=== PATIENT | female | born 1965 | race Caucasian/White ===

== ENCOUNTER → 2024-07-22 13:53 | Outpatient (BNVA) | payer BC, SELFPAY | PROVIDERS: PCP Family Medicine; Visit Provider Podiatrist Foot & Ankle Surgery | DX: S99.191A Other physeal fracture of right metatarsal, initial encounter for closed fracture; W10.9XXA Fall (on) (from) unspecified stairs and steps, initial encounter | CPT/HCPCS: 73630 ==

== ENCOUNTER → 2024-08-05 08:56 | Outpatient (BNVA) | payer BC, SELFPAY | PROVIDERS: PCP Family Medicine; Visit Provider Podiatrist Foot & Ankle Surgery | DX: S99.191D Other physeal fracture of right metatarsal, subsequent encounter for fracture with routine healing; R03.0 Elevated blood-pressure reading, without diagnosis of hypertension; W10.9XXD Fall (on) (from) unspecified stairs and steps, subsequent encounter | CPT/HCPCS: 73630 ==

== ENCOUNTER → 2024-08-25 11:06 | Outpatient (BNVA) | payer BC, SELFPAY | PROVIDERS: PCP Family Medicine; Visit Provider Podiatrist Foot & Ankle Surgery | DX: S99.191G Other physeal fracture of right metatarsal, subsequent encounter for fracture with delayed healing; W10.9XXD Fall (on) (from) unspecified stairs and steps, subsequent encounter | CPT/HCPCS: 73630 ==

== ENCOUNTER → 2024-09-15 14:53 | Outpatient (BNVA) | payer BC, SELFPAY | PROVIDERS: PCP Family Medicine; Visit Provider Podiatrist Foot & Ankle Surgery | DX: S99.191G Other physeal fracture of right metatarsal, subsequent encounter for fracture with delayed healing (principal); W10.9XXD Fall (on) (from) unspecified stairs and steps, subsequent encounter | CPT/HCPCS: 73630 ==

== ENCOUNTER → 2024-10-13 14:34 | Outpatient (BNVA) | payer BC, SELFPAY | PROVIDERS: PCP Family Medicine; Visit Provider Podiatrist Foot & Ankle Surgery | DX: S99.191D Other physeal fracture of right metatarsal, subsequent encounter for fracture with routine healing (principal); W10.9XXD Fall (on) (from) unspecified stairs and steps, subsequent encounter | CPT/HCPCS: 73630 ==

== ENCOUNTER → 2024-10-23 15:22 | Outpatient (BNVA) | payer BC, SELFPAY | PROVIDERS: PCP Family Medicine; Visit Provider Nurse Practitioner Women's Health | DX: Z87.42 Personal history of other diseases of the female genital tract (principal) | CPT/HCPCS: 87624 ==

== ENCOUNTER 2024-11-06 13:05 | Outpatient (CLI) | payer BC, SELFPAY ==
--- NOTE | 2024-11-06 13:08 | US_ITS ---
WS: [id number] BILATERAL 3D TOMOSYNTHESIS DIGITAL DIAGNOSTIC MAMMOGRAPHY WITH CAD CLINICAL INFORMATION: Z12.39 - Encounter for other screening for malignant neop... HISTORY: Swelling RIGHT axilla COMPARISON: None available TECHNIQUE: Bilateral CC, MLO, and ML views. FINDINGS: Scattered fibroglandular densities bilaterally. Palpable marker RIGHT axilla. Underlying lymph nodes partially visualized. Ultrasound of this area is pending. Small nodule outer LEFT breast measuring 4 mm. This is in the lower outer quadrant LEFT breast. Recommend further evaluation with LEFT breast diagnostic mammography and ultrasound if persistent. This could represent a tiny lymph node but indeterminate. ULTRASOUND BREAST RIGHT TECHNIQUE: Ultrasound right breast focused area of concern. CLINICAL INFORMATION: Z12.39 - Encounter for other screening for malignant neop... FINDINGS: Ultrasound RIGHT axilla in the area of palpable concern. Numerous prominent and enlarged lymph nodes are visualized the largest measures approximately 3.0 x 1.8 x 1.9 cm with persistent fatty hilum. These may be reactive but technically indeterminate. Largest lymph node could be further evaluated with ultrasound-guided biopsy or short interval ultrasound follow-up if preferred. US/US breast RT limited* [id number] IMPRESSION: RIGHT BREAST: DENSITY: There are scattered areas of fibroglandular density. BI-RADS: 4 - Suspicious Finding - Biopsy Should Be Considered. FOLLOW UP: See Report LEFT BREAST: Recommend LEFT breast diagnostic mammography and ultrasound of the 4 mm nodule described above BI-RADS 0 Additional imaging LEFT breast
--- NOTE | 2024-11-06 13:30 | MM_ITS ---
WS: [id number] BILATERAL 3D TOMOSYNTHESIS DIGITAL DIAGNOSTIC MAMMOGRAPHY WITH CAD CLINICAL INFORMATION: Z12.39 - Encounter for other screening for malignant neop... HISTORY: Swelling RIGHT axilla COMPARISON: None available TECHNIQUE: Bilateral CC, MLO, and ML views. FINDINGS: Scattered fibroglandular densities bilaterally. Palpable marker RIGHT axilla. Underlying lymph nodes partially visualized. Ultrasound of this area is pending. Small nodule outer LEFT breast measuring 4 mm. This is in the lower outer quadrant LEFT breast. Recommend further evaluation with LEFT breast diagnostic mammography and ultrasound if persistent. This could represent a tiny lymph node but indeterminate. ULTRASOUND BREAST RIGHT TECHNIQUE: Ultrasound right breast focused area of concern. CLINICAL INFORMATION: Z12.39 - Encounter for other screening for malignant neop... FINDINGS: Ultrasound RIGHT axilla in the area of palpable concern. Numerous prominent and enlarged lymph nodes are visualized the largest measures approximately 3.0 x 1.8 x 1.9 cm with persistent fatty hilum. These may be reactive but technically indeterminate. Largest lymph node could be further evaluated with ultrasound-guided biopsy or short interval ultrasound follow-up if preferred. MM/MM diag BI tomosynthesis [id number] IMPRESSION: RIGHT BREAST: DENSITY: There are scattered areas of fibroglandular density. BI-RADS: 4 - Suspicious Finding - Biopsy Should Be Considered. FOLLOW UP: See Report LEFT BREAST: Recommend LEFT breast diagnostic mammography and ultrasound of the 4 mm nodule described above BI-RADS 0 Additional imaging LEFT breast
== END 2024-11-06 13:06 | disposition home or self-care (01) ==
LOC: RAD 13:06
PROVIDERS: PCP Family Medicine; Visit Provider Nurse Practitioner Women's Health
DX: N63.23 Unspecified lump in the left breast, lower outer quadrant (principal); R92.323 Mammographic fibroglandular density, bilateral breasts; R59.0 Localized enlarged lymph nodes
CPT/HCPCS: 76642; 77062; G0279

== ENCOUNTER 2024-11-27 13:40 | Outpatient (CLI) | payer BC, SELFPAY ==
--- NOTE | 2024-11-27 14:00 | MM_ITS ---
WS: [id number] LEFT 3D TOMOSYNTHESIS DIGITAL MAMMOGRAPHY WITH CAD CLINICAL INFORMATION: N64.9 - Disorder of breast, unspecified HISTORY: Additional views COMPARISON: 11/06/2024 TECHNIQUE: 3 views of the left breast were obtained. FINDINGS: Scattered fibroglandular densities of the left breast. Stable tiny nodule previously described. On the spot compression views this probably represents a tiny lymph node. Ultrasound described below. ULTRASOUND BREAST LEFT TECHNIQUE: Ultrasound left breast focused area of concern. CLINICAL INFORMATION: N64.9 - Disorder of breast, unspecified FINDINGS: Ultrasound LEFT breast in the area of concern 3 to 6 o'clock position. Normal underlying parenchymal tissue. No suspicious cystic or solid lesions. No suspicious lesions to target for biopsy. Suggestion of a tiny lymph node at the 5 o'clock position likely corresponds to the mammographic findings. Recommend return to annual screening mammography MM/MM diag LT tomosynthesis [id number] IMPRESSION: DENSITY: There are scattered areas of fibroglandular density. BI-RADS: 2 - Benign. FOLLOW UP: 1 Year Follow-up Recommend return to annual screening mammography.
--- NOTE | 2024-11-27 14:15 | US_ITS ---
WS: [id number] LEFT 3D TOMOSYNTHESIS DIGITAL MAMMOGRAPHY WITH CAD CLINICAL INFORMATION: N64.9 - Disorder of breast, unspecified HISTORY: Additional views COMPARISON: 11/06/2024 TECHNIQUE: 3 views of the left breast were obtained. FINDINGS: Scattered fibroglandular densities of the left breast. Stable tiny nodule previously described. On the spot compression views this probably represents a tiny lymph node. Ultrasound described below. ULTRASOUND BREAST LEFT TECHNIQUE: Ultrasound left breast focused area of concern. CLINICAL INFORMATION: N64.9 - Disorder of breast, unspecified FINDINGS: Ultrasound LEFT breast in the area of concern 3 to 6 o'clock position. Normal underlying parenchymal tissue. No suspicious cystic or solid lesions. No suspicious lesions to target for biopsy. Suggestion of a tiny lymph node at the 5 o'clock position likely corresponds to the mammographic findings. Recommend return to annual screening mammography US/US breast LT complete [id number] IMPRESSION: DENSITY: There are scattered areas of fibroglandular density. BI-RADS: 2 - Benign. FOLLOW UP: 1 Year Follow-up Recommend return to annual screening mammography.
== END 2024-11-27 13:41 | disposition home or self-care (01) ==
LOC: RAD 13:41
PROVIDERS: PCP Family Medicine; Visit Provider Nurse Practitioner Women's Health
DX: N64.9 Disorder of breast, unspecified (principal); R92.8 Other abnormal and inconclusive findings on diagnostic imaging of breast; R92.322 Mammographic fibroglandular density, left breast
CPT/HCPCS: 76641; 77061; G0279

== ENCOUNTER 2024-12-03 10:40 | Outpatient (CLI) | payer BC, SELFPAY ==
--- NOTE | 2024-12-03 10:42 | US_ITS ---
WS: [id number] ULTRASOUND-GUIDED RIGHT AXILLARY LYMPH NODE BIOPSY CLINICAL INFORMATION: R92.8 - Other abnormal and inconclusive findings on diagn... FINDINGS: The procedure including risks, benefits, and complications were discussed with the patient who agreed to proceed. Using sterile technique patient was prepped and draped in the usual sterile fashion. After 1% lidocaine utilizing real-time ultrasound guidance FOUR 14-gauge cores were obtained of the RIGHT axillary lymph node. No immediate complications. US/[place] [id number] IMPRESSION: 1. Uncomplicated ultrasound-guided RIGHT axillary lymph node biopsy 2. The pathology demonstrates benign fibroadipose tissue. No evidence of malig keila. DENSITY: There are scattered areas of fibroglandular density. BI-RADS: 2 - Benign. FOLLOW UP: 1 Year Follow-up Recommend return to annual screening mammography.
== END 2024-12-03 10:41 | disposition home or self-care (01) ==
PROVIDERS: PCP Family Medicine; Visit Provider Nurse Practitioner Women's Health
DX: R92.8 Other abnormal and inconclusive findings on diagnostic imaging of breast (principal); R92.323 Mammographic fibroglandular density, bilateral breasts; D21.3 Benign neoplasm of connective and other soft tissue of thorax
CPT/HCPCS: 19083; 88305